=== PATIENT | female | born 1955 | race Two or more races ===

== ENCOUNTER 2022-08-10 11:17 | Emergency (ER) | payer MEDICARE, MEDICAID ==
[~2022-08-10] VITALS: Ht 157.5 cm; Wt 72.0 kg
[2022-08-10 11:52] VITALS: BP 133/83
[2022-08-10] MEDS ORDERED: CEPH500C PO (13:42)
[2022-08-10] MEDS ORDERED: AUG875T PO (13:42)
== END 2022-08-10 13:59 | disposition home or self-care (01) ==
LOC: ER 11:17
DX: H66.91 Otitis media, unspecified, right ear (principal); K00.0 Anodontia; Z88.0 Allergy status to penicillin; Z88.5 Allergy status to narcotic agent